=== PATIENT | male | born 1965 | race Hispanic/Latino ===

== ENCOUNTER 2020-03-06 14:41 | Outpatient (CLI) | payer OTHER ==
--- NOTE | 2020-03-06 17:06 | XRay Report ---
Left foot 3 views INDICATION: Left foot pain. IMPRESSION: No fracture or subluxation of the left foot is identified. Signer Name: Bean Parmar MD Signed: 03/06/2020 5:01 PM Workstation Name: [id number]
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
--- NOTE | 2020-03-06 17:08 | XRay Report ---
Lumbar spine 3 views INDICATION: Low back pain. IMPRESSION: No acute fracture or subluxation is identified. Mild L5-S1 facet arthropathy causing mild bilateral neural foraminal narrowing at this level. Signer Name: Bean Parmar MD Signed: 03/06/2020 5:04 PM Workstation Name: [id number]
== END 2020-03-06 14:42 | disposition home or self-care (01) ==
LOC: XRAY 14:41
PROVIDERS: ATTEND Internal Medicine
DX: S72.092A Other fracture of head and neck of left femur, initial encounter for closed fracture (principal); M47.817 Spondylosis without myelopathy or radiculopathy, lumbosacral region; M48.07 Spinal stenosis, lumbosacral region; M85.862 Other specified disorders of bone density and structure, left lower leg; M79.605 Pain in left leg; M54.5 Low back pain; Z02.71 Encounter for disability determination; W34.00XS Accidental discharge from unspecified firearms or gun, sequela; X58.XXXA Exposure to other specified factors, initial encounter; Y93.89 Activity, other specified; Y92.89 Other specified places as the place of occurrence of the external cause; Y99.8 Other external cause status
CPT/HCPCS: 72100